=== PATIENT | female | born 1965 | race Caucasian/White ===

== ENCOUNTER 2016-11-19 09:43 | Emergency (ER) | payer SELFPAY ==
[~2016-11-19] VITALS: Ht 170.2 cm; Wt 73.7 kg
[2016-11-19] MEDS ORDERED: AMLODIPINE BESY10 MG PO (10:49)
[2016-11-19] MEDS ORDERED: NAPROSYN500 MG PO (10:49)
[2016-11-19] MEDS ORDERED: FLEXERIL10 MG PO (10:49)
[2016-11-19 11:01] VITALS: BP 172/100
== END 2016-11-19 11:02 | disposition home or self-care (01) ==
LOC: EME 09:43
DX: I10 Essential (primary) hypertension (principal); S39.012A Strain of muscle, fascia and tendon of lower back, initial encounter; X58.XXXA Exposure to other specified factors, initial encounter; F17.200 Nicotine dependence, unspecified, uncomplicated
CPT/HCPCS: 99281; 99284